=== PATIENT | female | born 1995 | race African-American/Black ===

== ENCOUNTER 2022-09-10 08:30 | Emergency (ER) | payer OTHER ==
[2022-09-10] MEDS ORDERED: Acetaminophen 500 MG TAB ONE (09:19)
== END 2022-09-10 09:25 | disposition home or self-care (01) ==
LOC: NAV ERS 08:30
DX: O99.891 Other specified diseases and conditions complicating pregnancy (principal); K08.89 Other specified disorders of teeth and supporting structures; Z3A.01 Less than 8 weeks gestation of pregnancy
CPT/HCPCS: 99282